=== PATIENT | male | born 1990 | race African-American/Black ===

== ENCOUNTER 2016-09-04 05:55 | Emergency (ER) | payer MEDICAID ==
[~2016-09-04] VITALS: Ht 172.7 cm; Wt 82.0 kg
[2016-09-04 05:58] VITALS: BP 136/70
== END 2016-09-04 07:24 | disposition left against medical advice (07) ==
LOC: ER 05:57
DX: M79.671 Pain in right foot (principal); F20.9 Schizophrenia, unspecified
CPT/HCPCS: 99283